=== PATIENT | female | born 1955 | race Caucasian/White ===

== ENCOUNTER → 2018-04-06 | Outpatient (CLI) | payer OTHER | LOC: MC.RAD 07:45 | DX: Z12.31 Encounter for screening mammogram for malignant neoplasm of breast (principal) ==

== ENCOUNTER → 2020-08-17 | Outpatient (CLI) | payer OTHER ==
[~2020-08-17] MED LIST: LIPITOR20 MG PO; NORCO 325 MG-51 TAB PO; PYRIDIUM 100MG100 MG PO; REMERON 15M15 MG/TA1 PO
== END ==
LOC: MC.RAD 08:38
DX: Z12.31 Encounter for screening mammogram for malignant neoplasm of breast (principal)

== ENCOUNTER 2020-11-27 08:25 | Observation (INO) | payer MEDICARE, OTHER ==
[~2020-11-27] VITALS: Ht 185.4 cm; Wt 109.1 kg
[2020-11-27] MEDS ORDERED: REMERON 15M15 MG/TA1 PO (08:55)
[2020-11-27] MEDS ORDERED: LIPITOR20 MG PO (08:55)
[2020-11-27 09:10] LABS: BASO # 0.1 (0.0-0.2); BASO % 0.9 % (0.0-2.0); EOS # 0.2 (0.0-0.7); EOS % 1.6 % (0-4.0); GRAN # 5.9 (1.4-6.5); GRAN % 64.3 % (42.2-75.2); HEMATOCRIT 45.4 % (37.0-47.0); HEMOGLOBIN 15.3 g/dl (12.5-16.0); LYMPH # 2.4 (1.2-3.4); LYMPH % 26.1 % (20.0-51.0); MEAN CELL VOLUME 87 fl (80.0-100.0); MEAN CORPUSCULAR HEMOGLOBIN 29 pg (27.0-31.0); MEAN CORPUSCULAR HGB CONC 34 g/dl (33.0-37.0); MEAN PLATELET VOLUME 10.3 fl (7.4-10.4); MONO # 0.6 (0.1-0.6); MONO % 6.9 % (1.7-9.3); PLATELET COUNT 211 K/mm3 (130-400); RED BLOOD COUNT 5.23 M/mm3 (4.10-5.30); REDCELL DISTRIBUTION WIDTH-CV 13.8 % (11.5-14.5)
[2020-11-27 09:20] LABS: ALBUMIN 4.5 gm/dL (3.5-5.0); BILIRUBIN,TOTAL 0.7 mg/dL (0.0-1.0); CALCIUM 9.3 mg/dL (8.4-10.2); CREATININE, serum 0.76 (0.52-1.25); TOTAL PROTEIN 7.8 gm/dL (6.4-8.2)
[2020-11-27 10:36] LABS: COLLECTION METHOD CLEAN CATCH
[2020-11-27 10:51] LABS: MUCOUS Present /lpf; PH 5 (5-8); SQUAMOUS EPITHELIAL 0-2 /hpf; URINE APPEARANCE Clear; URINE BACTERIA None Seen /hpf; URINE BILIRUBIN Negative (NEGATIVE); URINE BLOOD 1+ (NEGATIVE); URINE COLOR Yellow; URINE GLUCOSE Negative (NEGATIVE); URINE KETONE 1+ (NEGATIVE); URINE LEUKOCYTE ESTERASE Negative (NEGATIVE); URINE NITRATE Negative (NEGATIVE); URINE PROTEIN(semi-quant) Negative (NEGATIVE); URINE UROBILINOGEN Negative (NEGATIVE)
[2020-11-27] MEDS ORDERED: NORCO 325 MG-51 TAB PO (12:50)
[2020-11-27] MEDS ORDERED: PYRIDIUM 100MG100 MG PO (12:50)
[2020-11-27 13:50] VITALS: BP 132/64; PULSE 63
--- NOTE | 2020-11-27 13:50 | NUR ---
Patient to room 7 per cart from PACU accompanied by Sri RODRIGUEZ and is awake and alert. Temp 97.4 and room air sats 95%. Denies pain or nausea.
[2020-11-27 14:05] VITALS: BP 129/58; PULSE 54
--- NOTE | 2020-11-27 14:05 | NUR ---
Resting and family in room. Continues to deny pain or nausea.
[2020-11-27 14:17] VITALS: TEMP 97.4
[2020-11-27 14:20] VITALS: BP 129/58; PULSE 54
[2020-11-27 14:35] VITALS: BP 119/63; PULSE 51
--- NOTE | 2020-11-27 14:35 | NUR ---
Denies pain or nausea. IV discontinued and site is free of redness or swelling.
--- NOTE | 2020-11-27 14:35 | NUR ---
Assisted up to the bathroom and gait is steady. Voids pink tinged urine and returns to room. Does well drinking water and eating cracker.
--- NOTE | 2020-11-27 15:01 | NUR ---
Dismissal instructions given and voices understanding of these. Provided office number for questions and concerns.
--- NOTE | 2020-11-27 15:03 | NUR ---
Patient dismissed to home driven by spouse and taken to the emergency room entrance per wheelchair and assisted into vehicle with instructions in hand.
== END 2020-11-27 12:51 | disposition home or self-care (01) ==
LOC: COL.ER 08:25 → SURG 10:44
PROVIDERS: Emergency Medicine; ADMIT Urology
DX: N20.1 Calculus of ureter (principal); E78.5 Hyperlipidemia, unspecified; E78.00 Pure hypercholesterolemia, unspecified; Z79.899 Other long term (current) drug therapy
CPT/HCPCS: C2617; J0690; J1100; J1885; J2405; J2704; J3010; J7120; Q9967

== ENCOUNTER → 2021-09-03 | Outpatient (CLI) | payer MEDICARE, OTHER | LOC: MC.RAD 07:48 | DX: Z12.31 Encounter for screening mammogram for malignant neoplasm of breast (principal) ==

== ENCOUNTER → 2021-09-15 | Outpatient (CLI) | payer MEDICARE, OTHER | LOC: MC.RAD 09-09 11:00 | DX: N64.59 Other signs and symptoms in breast (principal); N60.01 Solitary cyst of right breast; N64.89 Other specified disorders of breast ==

== ENCOUNTER 2023-03-29 21:54 | Emergency (ER) | payer MEDICARE, OTHER ==
[~2023-03-29] VITALS: Ht 182.9 cm; Wt 109.1 kg
[2023-03-29 22:57] LABS: BASO # 0.1 K/mm3 (0.0-0.2); BASO % 1.1 % (0.0-2.0); EOS # 0.2 K/mm3 (0.0-0.7); EOS % 3.4 % (0.0-4.0); GRAN # 2.9 K/mm3 (1.4-6.5); HEMATOCRIT 42.8 % (37.0-47.0); HEMOGLOBIN 14.9 g/dl (12.5-16.0); LYMPH # 2.7 K/mm3 (1.2-3.4); LYMPH % 42.3 % (20.0-51.0); MEAN CELL VOLUME 87 fl (80.0-100.0); MEAN CORPUSCULAR HEMOGLOBIN 30 pg (27-31); MEAN CORPUSCULAR HGB CONC 35 g/dl (33.0-37.0); MEAN PLATELET VOLUME 10.4 fl (7.4-10.4); MONO # 0.5 K/mm3 (0.1-0.6); PLATELET COUNT 202 K/mm3 (130-400); RED BLOOD COUNT 4.95 M/mm3 (4.10-5.30); REDCELL DISTRIBUTION WIDTH-CV 13.4 % (11.5-14.5)
[2023-03-29 23:12] LABS: ALANINE AMINOTRANSFERASE 32 U/L (0-55); ALBUMIN 3.9 gm/dL (3.4-4.8); ALKALINE PHOSPHATASE 91 U/L (40-150); ANION GAP 12 mmol/L (7-16); AST,SGOT 26 U/L (5-34); BILIRUBIN,TOTAL 0.4 mg/dL (0.2-1.2); BLOOD UREA NITROGEN 20 mg/dL (10-20); CALCIUM 9.7 mg/dL (8.4-10.2); CARBON DIOXIDE 22 mmol/L (23-31); CHLORIDE 109 mmol/L (98-107); CREATININE, serum 0.83 mg/dL (0.57-1.11); GLUCOSE 104 mg/dL (70-99); SODIUM 143 mmol/L (136-145); TOTAL PROTEIN 6.8 gm/dL (6.2-8.1)
[2023-03-29 23:20] LABS: TROPONIN-I < 0.010 ng/mL (0.00-0.033)
[2023-03-29] MEDS ORDERED: TUSS PO (23:54)
[2023-03-29] MEDS ORDERED: PREDNISONE20 MG PO (23:54)
[2023-03-30] VITALS: BP 103/67; PULSE 60; TEMP 97.7
[2023-03-30] MEDS ORDERED: TUSS PO (00:30)
== END 2023-03-30 | disposition home or self-care (01) ==
LOC: COL.ER 21:54
PROVIDERS: Nurse Practitioner
DX: J20.9 Acute bronchitis, unspecified (principal)
CPT/HCPCS: J7512

== ENCOUNTER → 2023-10-26 | Outpatient (CLI) | payer MEDICARE, OTHER ==
[~2023-10-26] MED LIST changes: +PREDNISONE20 MG PO; +TUSS PO
== END ==
LOC: MC.RAD 09:46
DX: Z12.31 Encounter for screening mammogram for malignant neoplasm of breast (principal); N60.11 Diffuse cystic mastopathy of right breast